=== PATIENT | male | born 1960 | race Hispanic/Latino ===

== ENCOUNTER 2016-12-22 17:51 | Emergency (ER) | payer BC ==
[~2016-12-22] VITALS: Ht 167.6 cm; Wt 79.0 kg
[2016-12-22 18:49] LABS: MCH 30.2 PG (29.0-34.0); MCHC 36.7 G/DL (30.0-36.0); MCV 82.3 FL (86-99); MEAN PLAT.VOLUME 9.9 uM^3 (9.0-12.4); PLATELET COUNT 192 K/uL (156-360); RBC DIS.WIDTH-CV 11.3 % (11.8-14.6); RBC DIS.WIDTH-SD 33.3 % (39-53); RED BLOOD COUNT 4.01 M/uL (4.00-5.50); WHITE BLOOD COUNT 8.2 K/uL (4.1-10.2)
[2016-12-22 18:57] LABS: CHLORIDE 99 mEq/L (99-109); POTASSIUM 5.3 mEq/L (3.7-5.4); SODIUM 131 mEq/L (136-147)
[2016-12-22 19:00] LABS: GLUCOSE 384 mg/dL (70-99)
[2016-12-22 19:01] LABS: ANION GAP 9 MEQ/L (2-14); TOTAL BILIRUBIN 0.5 mg/dL (0.0-1.0)
[2016-12-22 19:03] LABS: ALKALINE PHOSPHATASE 71 IU/L (3-129); GFR ESTIMATE (CALCULATED) 55 mL/min/
[2016-12-22 19:04] LABS: UREA NITROGEN (BUN) 35 mg/dL (9-23)
[2016-12-22 23:05] LABS: LIPASE 399 U/L (1.0-51.0)
[2016-12-22 23:44] LABS: TROP-I INTERPRETATION NEGATIVE; TROPONIN-I < 0.01 ng/mL (0.0-0.30)
[2016-12-23] MEDS ORDERED: LISINOPRIL40 MG PO (00:16)
[2016-12-23] MEDS ORDERED: ATORVASTATIN CA40 MG PO (00:16)
[2016-12-23] MEDS ORDERED: METFORMIN HCL1000 MG PO (00:17)
[2016-12-23 02:15] LABS: TROP-I INTERPRETATION NEGATIVE; TROPONIN-I < 0.01 ng/mL (0.0-0.30)
[2016-12-23 02:25] LABS: POINT-OF-CARE METER ID UU13113800
[2016-12-23 02:51] LABS: ADD MIUA? YES; BILIRUBIN NEGATIVE; BLOOD SMALL; COLOR YELLOW ((YELLOW)); GLUCOSE (STRIP) >=500; KETONES NEGATIVE; LEUKOCYTES NEGATIVE; NITRITE NEGATIVE; PROTEIN (STRIP) 100; SPECIFIC GRAVITY 1.012 (1.000-1.030); UROBILINOGEN 0.2 MG/DL (0.2-1.0)
[2016-12-23 03:20] LABS: BACTERIA NONE SEEN /HPF; EPITHELIAL CELLS NONE SEEN /HPF; HYALINE CASTS 0-5 /LPF; MUCUS TRACE /LPF; RED BLOOD CELLS 0-5 /HPF (0-5); UCUL ADDED? NO; WHITE BLOOD CELLS 0-5 /HPF (0-5)
[2016-12-23 03:47] VITALS: BP 145/79
== END 2016-12-23 03:48 | disposition home or self-care (01) ==
LOC: EME 17:51
PROVIDERS: Physician Assistant Medical
DX: R74.8 Abnormal levels of other serum enzymes (principal); N17.9 Acute kidney failure, unspecified; E11.65 Type 2 diabetes mellitus with hyperglycemia; Z79.84 Long term (current) use of oral hypoglycemic drugs; H53.8 Other visual disturbances; I10 Essential (primary) hypertension; E78.5 Hyperlipidemia, unspecified
CPT/HCPCS: 71020; 74176; 80053; 81003; 82948; 83690; 84484; 85027; 93005; 99281; 99285; J7030